=== PATIENT | female | born 1955 | race Caucasian/White ===

== ENCOUNTER 2020-01-22 08:59 | Day surgery (SDC) | payer MEDICARE, MEDICAID ==
[2020-01-21 10:24] LABS: BASOPHILS # (AUTO) 0.1 X10'3 (0-0.2); BASOPHILS % (AUTO) 0.8 % (0-1); EOSINOPHILS # (AUTO) 0.1 X10'3 (0-0.9); EOSINOPHILS % (AUTO) 1.1 % (0-6); HEMATOCRIT 36.5 % (35.0-45.0); LYMPHOCYTES # (AUTO) 0.8 X10'3 (1.1-4.8); LYMPHOCYTES % (AUTO) 10.6 % (21-51); MEAN CORPUSCULAR HGB CONC 32.8 g/dL (33.0-36.5); MEAN CORPUSCULAR VOLUME 91.7 FL (78-98); MEAN PLATELET VOLUME 8.4 FL (7.4-10.4); MONOCYTES # (AUTO) 0.7 X10'3 (0-0.9); MONOCYTES % (AUTO) 8.8 % (2-12); NEUTROPHILS # (AUTO) 6.1 X10'3 (1.8-7.7); NEUTROPHILS % (AUTO) 78.7 % (42-75); PLATELET COUNT 106 X10'3 (140-440); RED BLOOD COUNT 3.98 X10'6 (4.20-5.60); RED CELL DISTRIBUTION WIDTH 13.5 % (11.5-14.5); WHITE BLOOD COUNT 7.8 X10'3 (4.5-11.0)
[2020-01-21 10:37] LABS: PARTIAL THROMBOPLASTIN TIME 29 SECONDS (22-32)
[2020-01-21 11:02] LABS: ALBUMIN 3.9 G/DL (3.4-5.0); ANION GAP 11 (8-16); BLOOD UREA NITROGEN 57 MG/DL (7-18); BUN/CREATININE RATIO 23.8 (6.6-38.0); CALCIUM 9.5 MG/DL (8.5-10.1); CHLORIDE 106 MMOL/L (99-107); GLUCOSE 106 MG/DL (70-104); POTASSIUM 5.8 MMOL/L (3.5-5.1); SODIUM 139 MMOL/L (135-145); TOTAL CARBON DIOXIDE 21.8 MMOL/L (24-32); eGFR 20 ML/MIN
[~2020-01-22] VITALS: Ht 162.6 cm; Wt 96.7 kg
[2020-01-22] VITALS (12 sets, daily range): BP systolic 112–154; BP diastolic 52–93
[2020-01-22] MEDS ORDERED: LORazepam 0.5 MG tablet PO PRN (09:55)
[2020-01-22] MEDS ORDERED: sodium bicarbonate (8.4%) inj. 150 ML in dextrose 5%-water 1,000 ML IV ONE (09:55)
[2020-01-22] MEDS ORDERED: diphenhydrAMINE 25mg capsule PO PRN (09:55)
[2020-01-22] MEDS ORDERED: acetylcysteine 200 MG/ml 4ml vial PO PRN (09:55)
[2020-01-22] MEDS ORDERED: LIDOcaine/PRILOcaine 5gm cream TP ONE (10:00)
[2020-01-22] MEDS ORDERED: normal saline 1000ml 1,000 ML IV SCH (10:05)
[2020-01-22] MEDS ORDERED: ATOR10TA87 PO (10:14)
[2020-01-22] MEDS ORDERED: OMEP20CA15 PO (10:14)
[2020-01-22] MEDS ORDERED: ALLO300T8 PO (10:14)
[2020-01-22] MEDS ORDERED: ASPI-611 PO (10:14)
[2020-01-22] MEDS ORDERED: ALEN70TA60 PO (10:14)
[2020-01-22] MEDS ORDERED: ERGO500041 PO (10:14)
[2020-01-22] MEDS ORDERED: MONT10TA21 PO (10:14)
[2020-01-22] MEDS ORDERED: AMLO5TAB PO (10:14)
[2020-01-22] MEDS ORDERED: CLOP75TA15 PO (10:14)
[2020-01-22] MEDS ORDERED: FLEC50TA28 PO (10:14)
[2020-01-22] MEDS ORDERED: LISI-600 PO (10:14)
[2020-01-22] MEDS ORDERED: BENZ1TAB7 PO (10:47)
[2020-01-22] MEDS ORDERED: LAMO100T65 PO (10:47)
[2020-01-22] MEDS ORDERED: LEVO125T PO (10:47)
[2020-01-22] MEDS ORDERED: NPH,100V2 SQ (10:47)
[2020-01-22] MEDS ORDERED: FERR-116 PO (10:47)
[2020-01-22] MEDS ORDERED: LURA120T PO (10:47)
[2020-01-22] MEDS ORDERED: GABA300C PO (10:47)
[2020-01-22] MEDS ORDERED: FURO40TA4 PO (10:47)
[2020-01-22] MEDS ORDERED: MIRT-67 PO (10:47)
[2020-01-22] MEDS ORDERED: CARB-13 PO (10:47)
[2020-01-22] MEDS ORDERED: TOP100T PO (10:47)
[2020-01-22] MEDS ORDERED: CHOL10006 PO (10:47)
[2020-01-22] MEDS ORDERED: AMA100C PO (10:47)
[2020-01-22] MEDS ORDERED: NITR0.4T51 SL (10:47)
[2020-01-22] MEDS ORDERED: METO25TA6 PO (10:47)
[2020-01-22] MEDS ORDERED: DOCU-267 PO (10:47)
[2020-01-22] MEDS ORDERED: CLOP75TA33 PO (10:47)
[2020-01-22] MEDS ORDERED: LISI10TA4 PO (10:48)
[2020-01-22] MEDS ORDERED: TRAZ150T78 PO (10:48)
[2020-01-22] MEDS ORDERED: midazolam 2 mg/2 ml injection ONE (11:36)
[2020-01-22] MEDS ORDERED: verapamil 2.5 mg/ml inj IV ONE (11:36)
[2020-01-22] MEDS ORDERED: iohexol 350MG/ML 100ml bottle IV ONE (11:36)
[2020-01-22] MEDS ORDERED: fentaNYL/PF 50MCG/1 ML 2ML syringe ONE (11:36)
[2020-01-22] MEDS ORDERED: heparin 1,000unit/ml 10ml vial 10 ML ONE (11:36)
[2020-01-22] MEDS ORDERED: LIDOcaine 1% (10mg/ml)w/preservative injection 20ml MDV ONE (11:36)
[2020-01-22] MEDS ORDERED: iohexol 350 MG/ML 50ML vial IV ONE (11:36)
[2020-01-22] MEDS ORDERED: nitroGLYCERIN-Tridil 50MG/D5W 250 ML IV ONE (11:36)
[2020-01-22] MEDS ORDERED: furosemide 40mg/4ml inj IV ONE (13:15)
[2020-01-22] MEDS ORDERED: sodium polystyrene sulfonate 15gm/60ml oral suspension PO ONE (13:15)
== END 2020-01-22 19:40 | disposition home or self-care (01) ==
LOC: SSTAY O 08:59
PROVIDERS: ATTEND Internal Medicine Cardiovascular Disease
DX: R07.89 Other chest pain (principal); R06.02 Shortness of breath; I25.10 Atherosclerotic heart disease of native coronary artery without angina pectoris; E78.5 Hyperlipidemia, unspecified; E87.5 Hyperkalemia; J44.9 Chronic obstructive pulmonary disease, unspecified; G47.30 Sleep apnea, unspecified; E11.22 Type 2 diabetes mellitus with diabetic chronic kidney disease; I12.9 Hypertensive chronic kidney disease with stage 1 through stage 4 chronic kidney disease, or unspecified chronic kidney disease; N18.30 Chronic kidney disease, stage 3 unspecified; E03.9 Hypothyroidism, unspecified; G20 Parkinson's disease; M13.88 Other specified arthritis, other site; E66.9 Obesity, unspecified; Z68.37 Body mass index [BMI] 37.0-37.9, adult; Z95.5 Presence of coronary angioplasty implant and graft; Z79.01 Long term (current) use of anticoagulants; Z79.899 Other long term (current) drug therapy; Z87.891 Personal history of nicotine dependence; Z88.2 Allergy status to sulfonamides; Z88.1 Allergy status to other antibiotic agents; Z82.49 Family history of ischemic heart disease and other diseases of the circulatory system
CPT/HCPCS: 36415; 80048; 82948; 85025; 85610; 85730; 93005; 93460; 99152; 99153; C1769; C1894; J1644; J1940; J2001; J2250; J3010; J7030; Q0163; Q9967; A4620; A5120; A6258; C1751; J3490

== ENCOUNTER 2020-03-30 12:02 | Emergency (ER) | payer MEDICARE, MEDICAID ==
[~2020-03-30] VITALS: Ht 162.6 cm; Wt 93.2 kg
[~2020-03-30 12:02] MED LIST: AMA100C PO; BENZ1TAB7 PO; CARB-13 PO; CHOL10006 PO; CLOP75TA33 PO; DOCU-267 PO; FERR-116 PO; FURO40TA4 PO; GABA300C PO; LAMO100T65 PO; LEVO125T PO; LISI10TA4 PO; LURA120T PO; METO25TA6 PO; MIRT-67 PO; NITR0.4T51 SL; NPH,100V2 SQ; TOP100T PO; TRAZ150T78 PO
== END 2020-03-30 13:11 | disposition home or self-care (01) ==
LOC: ER 12:02
DX: R05 Cough (principal); R06.02 Shortness of breath; J02.9 Acute pharyngitis, unspecified; I20.9 Angina pectoris, unspecified; Z20.828 Contact with and (suspected) exposure to other viral communicable diseases; Z88.2 Allergy status to sulfonamides; Z88.5 Allergy status to narcotic agent; Z88.6 Allergy status to analgesic agent; Z79.899 Other long term (current) drug therapy
CPT/HCPCS: 36415; 71045; 87635; 99284

== ENCOUNTER 2020-12-02 05:39 | Day surgery (SDC) | payer MEDICARE ==
[2020-12-01 11:37] LABS: BASOPHILS # (AUTO) 0.1 X10'3 (0-0.2); BASOPHILS % (AUTO) 1.1 % (0-1); EOSINOPHILS # (AUTO) 0.2 X10'3 (0-0.9); EOSINOPHILS % (AUTO) 3.7 % (0-6); HEMATOCRIT 32.9 % (35.0-45.0); HEMOGLOBIN 10.9 g/dl (12.0-16.0); LYMPHOCYTES % (AUTO) 19.5 % (21-51); MEAN CORPUSCULAR HEMOGLOBIN 30.5 PG (27.0-31.0); MEAN CORPUSCULAR HGB CONC 33.3 g/dL (33.0-36.5); MEAN CORPUSCULAR VOLUME 91.6 FL (78-98); MEAN PLATELET VOLUME 7.9 FL (7.4-10.4); MONOCYTES # (AUTO) 0.6 X10'3 (0-0.9); MONOCYTES % (AUTO) 11.7 % (2-12); NEUTROPHILS # (AUTO) 3.2 X10'3 (1.8-7.7); PLATELET COUNT 116 X10'3 (140-440); RED BLOOD COUNT 3.59 X10'6 (4.20-5.60); RED CELL DISTRIBUTION WIDTH 13.1 % (11.5-14.5)
[2020-12-01 11:50] LABS: ALBUMIN 3.7 G/DL (3.4-5.0); ANION GAP 10 (8-16); BLOOD UREA NITROGEN 56 MG/DL (7-18); BUN/CREATININE RATIO 23.6 (6.6-38.0); CALCIUM 8.7 MG/DL (8.5-10.1); CHLORIDE 109 MMOL/L (99-107); CREATININE 2.37 MG/DL (0.40-0.90); GLUCOSE 66 MG/DL (70-104); POTASSIUM 4.6 MMOL/L (3.5-5.1); SODIUM 144 MMOL/L (135-145); TOTAL CARBON DIOXIDE 24.7 MMOL/L (24-32); eGFR 20 ML/MIN
[2020-12-01 11:52] LABS: PARTIAL THROMBOPLASTIN TIME 27 SECONDS (22-32)
[~2020-12-02] VITALS: Ht 162.6 cm; Wt 85.4 kg
[2020-12-02] VITALS (16 sets, daily range): BP systolic 115–178; BP diastolic 58–90
[~2020-12-02 05:39] MED LIST changes: +LISI10TA27 PO; -LISI10TA4 PO; +LOP25T PO; -METO25TA6 PO
[2020-12-02] MEDS ORDERED: normal saline 1,000 ML IV SCH (06:15)
[2020-12-02] MEDS ORDERED: diphenhydrAMINE 25mg capsule PO PRN (06:15)
[2020-12-02] MEDS ORDERED: LORazepam 0.5 MG tablet PO PRN (06:15)
[2020-12-02] MEDS ORDERED: sodium bicarbonate (8.4%) inj. 150 ML in dextrose 5%-water 1,000 ML IV ONE ×2 (06:40→10:00)
[2020-12-02] MEDS ORDERED: acetylcysteine 200 MG/ml 4ml vial PO PRN (06:45)
[2020-12-02] MEDS ORDERED: LEVO200T8 PO (06:45)
[2020-12-02] MEDS ORDERED: ATOR40TA PO (06:45)
[2020-12-02] MEDS ORDERED: ALB0.5UD IH (06:51)
[2020-12-02] MEDS ORDERED: symbicort INH (06:51)
[2020-12-02] MEDS ORDERED: PRAZ1CAP5 PO (06:57)
[2020-12-02] MEDS ORDERED: ISOS60TA71 PO (06:57)
[2020-12-02] MEDS ORDERED: INSU100I31 SUBCUT (06:57)
[2020-12-02] MEDS ORDERED: nitroGLYCERIN-Tridil 50MG/D5W 250 ML IV ONE (07:20)
[2020-12-02] MEDS ORDERED: iohexol 350 MG/ML 50ML vial IV ONE (07:20)
[2020-12-02] MEDS ORDERED: midazolam 1 mg/ML 2ml injection ONE (07:20)
[2020-12-02] MEDS ORDERED: heparin 1,000unit/ml 10ml vial 10 ML ONE (07:20)
[2020-12-02] MEDS ORDERED: verapamil 2.5 mg/ml inj IV ONE (07:20)
[2020-12-02] MEDS ORDERED: iohexol 350MG/ML 100ml bottle IV ONE ×2 (07:20→08:40)
[2020-12-02] MEDS ORDERED: LIDOcaine 1% (10mg/ml)w/preservative injection 20ml MDV ONE (07:20)
[2020-12-02] MEDS ORDERED: fentaNYL/PF 50MCG/1 ML 2ML syringe ONE (07:20)
[2020-12-02] MEDS ORDERED: heparin 25,000 UNIT/250ml bag 250 ML IV ONE (08:40)
[2020-12-02] MEDS ORDERED: clopidogrel 300mg tablet ONE (09:02)
[2020-12-02 09:30] LABS: ISTAT HGB ART 9.5 g/dl (12.0-16.0); ISTAT Hct ART 28 %PCV (35-48); ISTAT O2 SATURATION ARTERIAL 98 % (95-98); ISTAT SOURCE ART
--- NOTE | 2020-12-02 09:45 | NUR ---
Problems reprioritized. Patient report given, questions answered & plan of care reviewed with Ching LOPEZ.
[2020-12-02] MEDS ORDERED: atorvastatin 20mg tablet PO SCH (09:54)
[2020-12-02] MEDS ORDERED: CLOPIDOGREL BISULFATE 300MG TAB PO ONE (09:55)
[2020-12-02] MEDS ORDERED: HYDROcodone/acetaminophen 10/325mg tab PO PRN (09:55)
[2020-12-02] MEDS ORDERED: aspirin 325mg tablet PO ONE (09:55)
[2020-12-02 11:51] LABS: ISTAT Hct MIX 28 %PCV (35-48); ISTAT O2 SATURATION MIX VENOUS 68 % (60-80); ISTAT SOURCE VEN
[2020-12-02] MEDS ORDERED: aspirin 81mg tab.chew PO ONE (12:55)
[2020-12-02] MEDS: HYDROcodone/acetaminophen 10/325mg tab PO PRN ×2 (13:08→17:55)
[2020-12-03] MEDS ORDERED: clopidogrel 75mg tablet PO SCH (08:00)
[2020-12-03] MEDS ORDERED: aspirin 325mg tablet PO SCH (08:30)
== END 2020-12-02 19:55 | disposition home or self-care (01) ==
LOC: SSTAY O 05:39
PROVIDERS: ATTEND Internal Medicine Cardiovascular Disease
DX: R94.39 Abnormal result of other cardiovascular function study (principal); I25.10 Atherosclerotic heart disease of native coronary artery without angina pectoris; E78.5 Hyperlipidemia, unspecified; J44.9 Chronic obstructive pulmonary disease, unspecified; E03.9 Hypothyroidism, unspecified; K21.9 Gastro-esophageal reflux disease without esophagitis; M13.88 Other specified arthritis, other site; G20 Parkinson's disease; E11.22 Type 2 diabetes mellitus with diabetic chronic kidney disease; I12.9 Hypertensive chronic kidney disease with stage 1 through stage 4 chronic kidney disease, or unspecified chronic kidney disease; N18.30 Chronic kidney disease, stage 3 unspecified; E66.9 Obesity, unspecified; Z68.32 Body mass index [BMI] 32.0-32.9, adult; G47.30 Sleep apnea, unspecified; Z79.01 Long term (current) use of anticoagulants; Z79.899 Other long term (current) drug therapy; Z95.5 Presence of coronary angioplasty implant and graft; Z87.891 Personal history of nicotine dependence; Z88.8 Allergy status to other drugs, medicaments and biological substances
CPT/HCPCS: 36415; 76937; 80048; 82803; 82948; 85014; 85025; 85347; 85610; 85730; 93005; 93460; 99152; 99153; C1725; C1751; C1769; C1874; C1894; C9600; J1644; J2001; J2250; J3010; J7030; J7040; Q0163; Q9967; A4620; A5120; A6258; J3490